=== PATIENT | male | born 1965 | race Caucasian/White ===

== ENCOUNTER → 2020-11-09 08:12 | Outpatient (BNVA) | payer MEDICARE, MEDICAID, SELFPAY | PROVIDERS: Visit Provider Orthopaedic Surgery | DX: M75.101 Unspecified rotator cuff tear or rupture of right shoulder, not specified as traumatic (principal) | CPT/HCPCS: 99212 ==

== ENCOUNTER 2020-12-02 06:03 | Day surgery (SDC) | payer MEDICARE, MEDICAID, SELFPAY ==
[2020-11-26 10:23] VITALS: BMI 28.8
[2020-12-02] VITALS (7 sets, daily range): BP systolic 99–130; BP diastolic 51–79; PULSE 67–76; RESP 16–18; TEMP 36.3–36.7; O2SAT 91–99
[2020-12-02 06:34] LABS: Glucose, Whole Blood 167 mg/dL (60-115)
--- NOTE | 2020-12-02 07:19 | HO.ANESPROP2 ---
HPI - Anesthesia Eval Consult details Narrative: 55 M for rotator cuff repair. Uneventful anesthesia for left shoulder previously PMFSH Past Medical History Medical History Asthma Back pain Depressive disorder Diabetes mellitus High cholesterol Hyperlipidemia Hypertension Lab test negative for COVID-19 virus Family History Family History Father No problems noted. Mother No problems noted. Surgical History Surgical History H/O colonoscopy History of cochlear implant History of repair of left rotator cuff (~04/10/18) Hx of sinus surgery Social History Social History Smoking Status: Former smoker Smoking Quit Date: 2014 Use of substances other than those prescribed or required for medical reasons: No Advance Directives Information Provided: No Recently lost weight without trying: No Current occupational status: employed Current occupation: right handed Meds Allergies Allergy/AdvReac Type Severity Reaction Status Date / Time No Known Allergies Allergy Verified 11/26/20 10:28 Home Medications Medication Instructions Recorded Confirmed Type albuterol sulfate 90 mcg/actuation 90 mcg INHALATION Q4-6H PRN 11/09/20 11/26/20 History aerosol inhaler aspirin 81 mg tablet,delayed 81 mg PO DAILY 11/09/20 11/26/20 History release atorvastatin 20 mg tablet 20 mg PO DAILY 11/09/20 11/26/20 History blood sugar diagnostic #10 ea 11/09/20 History empagliflozin 10 mg tablet 10 mg PO DAILY 11/09/20 11/26/20 History lancets 28 gauge #100 ea 11/09/20 History lisinopril 2.5 mg tablet 2.5 mg PO DAILY 11/09/20 11/26/20 History omeprazole 20 mg capsule,delayed 20 mg PO DAILY PRN 11/09/20 11/26/20 History release pregabalin 50 mg capsule 50 mg PO BID 11/09/20 11/26/20 History fluticasone propion-salmeterol 2 inh INHALATION BID 11/26/20 11/26/20 History glipizide 20 mg PO DAILY 11/26/20 11/26/20 History metoprolol tartrate 1 tab PO BID 11/26/20 11/26/20 History empagliflozin [Jardiance] 1 tab PO DAILY 12/02/20 12/02/20 History Exam Exam Date and Time: December 02, 2020718 Height,Weight and Vital Signs: Height 5 ft 6 in Weight 81.193 kg Last Vital Signs Temp 98.0 F 12/02/20 06:29 Pulse 67 12/02/20 06:29 Resp 16 12/02/20 06:29 BP 130/79 12/02/20 06:29 Pulse Ox 94 12/02/20 06:29 Pertinent Lab Results Pertinent Lab Results: Laboratory Tests 12/02/20 06:28 POC Glucose 167 H Airway Mallampati Class: II TM Dist: >3cm Neck ROM: Full Loose/Missing/Broken Teeth: No Heart: RRR Lungs: NL Assessment and Plan Assessment Anesthesia Assessment: Anesthesia Plan Discussed and Chart Reviewed Final Anesthetic Review NPO: Yes ASA Class: III Final Preanesthetic Review: No Changes in Pt Med Stat, Meds/Allgs Chart Reviewed, Consent Obtained/Reviewed and Anes Risks/Benef Reviewed Patient Risk: Intermediate Procedure Risk: Intermediate Anesthetic Plan Anesthetic Plan: GA and Regional Block Disposition: Standard PACU
--- NOTE | 2020-12-02 07:37 | MHC.SHP ---
Pre-Procedural Eval Section A The patient is an INPATIENT: No Changes since office visit: Yes Patient answered all questions; No Cold of Flu in the past 2 weeks, No New Medical Problems and No Changes in Medication The History & Physical has been completed within 30 days and I have reviewed it.: Yes Section B Chief Complaint: rotator cuff repair Allergies: Allergies Allergy/AdvReac Type Severity Reaction Status Date / Time No Known Allergies Allergy Verified 11/26/20 10:28 Plan I have reviewed the history and physical and performed a pertinent physical examination on my patient. No changes have occurred unless specified.
--- NOTE | 2020-12-02 07:43 | PC.NURSE ---
CEFAZOLIN PULLED FOR ANESTHESIA AT 0720
--- NOTE | 2020-12-02 09:20 | P.BOP_ITS ---
Brief Operative Note Date of Service: 12/02/20 Pre-op diagnosis: right rtc tear Post-op diagnosis: same Procedure: right rtc repair Implants: ahn and nephew helacoil 4.75 x2; 5.0 x 2 Surgeon: Harley Lora MD Anesthesia: GETA and regional Instructional Resource Teacher: Valeria Lowery Estimated blood loss (mL): 0 Tourniquet time (min): 0 IV fluids (mL): 900 Urine output (mL): 0 Pathology: none sent Condition: stable Disposition: PACU
--- NOTE | 2020-12-02 10:07 | OP_ITS ---
SURGEON: Harley Lora MD INDICATIONS: This is a 55-year-old gentleman with a full-thickness rotator cuff tear, consented to undergo rotator cuff repair. PREOPERATIVE DIAGNOSIS: Right rotator cuff tear. POSTOPERATIVE DIAGNOSIS: Right rotator cuff tear. PROCEDURE PERFORMED: Right rotator cuff repair. ESTIMATED BLOOD LOSS: Zero. COMPLICATIONS: None known. ANESTHESIA: General and regional. ASSISTANTS: Sebastián Cottrell. SPECIMENS: FLUIDS: 900. IMPLANTS: Morrissey and Nephew HEALICOIL 4.75 x 2 and knotless lateral row 5.0 x2. PROCEDURE IN DETAIL: The patient was brought to the operating room, placed in the beach chair position. All bony prominences were well padded and he was prepped and draped in standard sterile fashion. Time-out was called to identify proper site, proper procedure, proper surgeon. IV antibiotics per weight was administered. I began by making a posterolateral stab incision with 15 blade. Blunt trocar was placed into the glenohumeral joint and an anterior portal was established. There was no biceps tendon in the joint. Subscap was intact with the partial-thickness superior humeral insertional tear that was not made of repair. Cartilage surfaces were clean. Gutter was clean. Labrum was debrided circumferentially and there was an undersurface full-thickness rotator cuff tear. I then entered the subacromial space and established a lateral portal. I debrided the bursa and identified a crescentic full-thickness tear of the supraspinatus. Two medial row Morrissey and Nephew HEALICOIL 4.75 mm anchors were placed and a Scorpion was used to pass the FiberTape through the cuff. This was then brought down to a lateral row of 5.0 knotless anchors and I initially cross the sutures, but then uncross them as the compression of the cuff was better. Prior to this, I debrided the footprint down to bleeding bone. I was very happy with the repair at this point and then performed a 5 mm subacromial decompression. All instrumentation was then removed. Portals were closed with nylon. The patient was placed in sterile dressing, extubated, and brought to recovery room in stable condition. There were no known complications. MD [place]/SINGHL / [id number]
--- NOTE | 2020-12-02 10:58 | HO.POSTANES ---
Post Anesthesia Evaluation Post Anesthesia Evaluation Vital Signs: Vital Signs Temp Pulse Resp BP Pulse Ox 12/02/20 10:25 97.3 F 70 18 103/59 L 94 12/02/20 10:10 71 17 100/58 L 91 L 12/02/20 09:54 75 18 99/57 L 92 12/02/20 09:50 72 18 105/59 L 98 12/02/20 09:45 76 18 112/51 L 99 12/02/20 09:40 97.3 F 75 16 115/62 99 12/02/20 06:29 98.0 F 67 16 130/79 94 Anesthesia: Nerve Block and General Endotracheal-GETA Mental Status: Awake Pain Control: Satisfactory Nausea/Vomiting: None Hydration: Adequate Anesthesia-Related Issues: No Anes. Related Issues
== END 2020-12-02 11:02 | disposition home or self-care (01) ==
PROVIDERS: PCP Physician Assistant Medical; Visit Provider Orthopaedic Surgery
PROC: (CPT 29827; principal; 2020-12-02 07:30)
DX: M75.121 Complete rotator cuff tear or rupture of right shoulder, not specified as traumatic (principal); J45.909 Unspecified asthma, uncomplicated; E11.9 Type 2 diabetes mellitus without complications; I10 Essential (primary) hypertension; Z79.82 Long term (current) use of aspirin; Z79.84 Long term (current) use of oral hypoglycemic drugs; Z79.899 Other long term (current) drug therapy
CPT/HCPCS: 29827; 29826; 82947; C1713; J0171; J0690; J2250; J2370; J2405; J3010

== ENCOUNTER → 2020-12-17 10:45 | Outpatient (BNVA) | payer MEDICARE, MEDICAID, SELFPAY | PROVIDERS: PCP Physician Assistant Medical; Visit Provider Physician Assistant | DX: Z98.890 Other specified postprocedural states (principal) | CPT/HCPCS: 99212 ==

== ENCOUNTER → 2021-01-14 10:38 | Outpatient (BNVA) | payer MEDICARE, MEDICAID, SELFPAY | PROVIDERS: Visit Provider Orthopaedic Surgery | DX: Z98.890 Other specified postprocedural states (principal) | CPT/HCPCS: 99212 ==

== ENCOUNTER → 2021-03-01 10:50 | Outpatient (BNVA) | payer MEDICARE, MEDICAID, SELFPAY | PROVIDERS: Visit Provider Orthopaedic Surgery | DX: Z98.890 Other specified postprocedural states (principal) | CPT/HCPCS: 99212 ==

== ENCOUNTER 2021-03-09 11:00 | Outpatient (RCR) | payer MEDICARE, MEDICAID, SELFPAY ==
--- NOTE | 2021-01-05 14:07 | MHC.PT.EP ---
[facility] [place] Office [place] Office [place] Office [address] Judith West [address] [phone] F: [phone] F: [phone] F: [phone] F: [phone] Physical Therapy Plan of Care Date of Evaluation: 01/05/21 Date of Surgery: 12/02/20 Diagnosis: S/P RIGHT RC REPAIR Assessment: Pt IS S/P RC REPAIR 12/02/20. UPON EVAL Pt DEMONSTRATES IMPAIRMENTS OF DECREASED ROM, DECREASED STRENGTH, ALTERED POSTURE AND POSITIONING AND INCREASED PAIN. FUNCTIONAL LIMITATIONS INCLUDE DECREASED ABILITY TO PERFORM ADLs AND HOMEMAKING TASKS, INABILITY TO PERFORM LIFTING, REACHING, BENDING, PUSHING AND PULLING, DISRUPTED SLEEP AND DECREASED PARTICIPATION IN FITNESS AND RECREATIONAL ACTIVITIES. [ End ] Frequency and Duration: The patient will be seen 2X WEEK FOR 12 WEEKS Short Term Goals: INITIATE HEP AND EDUC IN SELF MANAGEMENT OF SYMPTOMS IN 2 WEEKS Long-Term Goals: FULL, PAINFREE SHOULDER ROM IN 12 WEEKS FULL UPPER EXTREMITY STRENGTH, EQUAL SNOW IN [address] OBJECT AT LEAST 5# ONTO SHOULDER HEIGHT SHELF WITHOUT INCREASING PAIN GREATER THAN 2/10 IN 12 WEEKS INDEPENDENT WITH ALL ADLs AND NO INCREASE IN PAIN IN 12 WEEKS Treatment Plan: Modalities to reduce pain, spasms and effusion. Manual therapy to restore motion and function. Therapeutic exercise to improve strength and flexibility. Neuromuscular re-education for posture and balance. Therapeutic activities to return to functional activities of daily living. Electronically signed by: LUCIA SCHNEIDER PT, DPT Please sign and return to therapist. Thank you for your referral.
--- NOTE | 2021-01-12 11:49 | MHC.PT.PR ---
[facility] [place] Office [place] Office [place] Office [address] [place] West [address] [facility] [phone] F: [phone] F: [phone] F: [phone] F: [phone] Physical Therapy Progress Note Diagnosis: S/P RIGHT RC REPAIR Date of Surgery: 12/02/20 Date of Evaluation: 01/01/21 Treatments to Date: 4 Cancellations to Date: 0 No Shows to Date: 0 Subjective: Performing HEP 2x day at home, no questions nor difficulties. Mild tightness in anterior shoulder. Improving sleep. Pain Score and Location: 3 RIGHT ANTERIOR SHOULDER Objective Measures: Pain free PROM Flex=90, ER=20 per protocol, AAROM to 120 in scapular plane without substitution (with tactile cuing) Assessment: Alec is progressing well as evidenced by increasing AAROM within protocol parameters, increasing strength of forearm and wrist, improving ability to perform correct scapular retraction and GH positioning. He will benefit from continued PT 2 x week for 4 weeks to progress per protocol and begin strengthening as appropriate. To Dr. Lora for F/U 01/14/21. PT Plan: Continue with PT Frequency and Duration: The patient will be seen 2x week for 4 weeks Treatment Plan: Therapeutic Exercise Dynamic Therapeutic Activities Neuromuscular Re-ed Manual Therapies Joint Mobilization Taping Home Exercise Program Patient Education Hot or Cold Pack Reviewed/ Agreed with Student Documentation: Therapist: Thank you once again for your referral.
--- NOTE | 2021-04-01 09:50 | MHC.PT.DC ---
[facility] [place] Office [place] Office [place] Office [address] Judith West [address] [phone] F: [phone] F: [phone] F: [phone] F: [phone] Physical Therapy Discharge Report Diagnosis: S/P RIGHT RC REPAIR Date of Surgery: 12/02/20 Date of Evaluation: 01/01/21 Date of Discharge: Treatments to Date: 14 Cancellations to Date: 0 No Shows to Date: 1 Discharge Status: Achieved Goals Improved Function Independent with HEP Discharge Summary: At last attended visit pt had progressed well and demonstrated full ROM and strength WFLs. He was independent with HEP and self management of any residual discomfort. He did not attend final scheduled visits for personal reasons, formal re-assess not performed. Electronically signed by: Bernadette Ball PT, DPT Please sign and return to therapist. Thank you for your referral.
== END 2021-04-01 09:50 | disposition other institution (70) ==
LOC: HO.PT 11:00
PROVIDERS: Visit Provider Physician Assistant
DX: Z98.890 Other specified postprocedural states (principal)
CPT/HCPCS: 97110; 97140; 97161; 97530; 97535

== ENCOUNTER → 2021-04-12 10:21 | Outpatient (BNVA) | payer MEDICARE, MEDICAID, SELFPAY | PROVIDERS: Visit Provider Orthopaedic Surgery | DX: Z98.890 Other specified postprocedural states (principal) | CPT/HCPCS: 99212 ==

== ENCOUNTER → 2022-03-18 11:40 | Outpatient (BNVA) | payer MEDICARE, MEDICAID, SELFPAY | PROVIDERS: Visit Provider Orthopaedic Surgery | DX: M54.12 Radiculopathy, cervical region (principal); M17.0 Bilateral primary osteoarthritis of knee; Z98.890 Other specified postprocedural states | CPT/HCPCS: 99212 ==

== ENCOUNTER → 2022-04-01 10:55 | Outpatient (BNVA) | payer MEDICARE, MEDICAID, SELFPAY | PROVIDERS: Visit Provider Orthopaedic Surgery | DX: M17.0 Bilateral primary osteoarthritis of knee (principal); Z98.890 Other specified postprocedural states | CPT/HCPCS: 99212 ==

== ENCOUNTER 2022-04-11 13:00 | Outpatient (RCR) | payer MEDICARE, MEDICAID, SELFPAY ==
--- NOTE | 2022-03-31 15:50 | MHC.PT.EP ---
[facility] [place] Office [place] Office [place] Office [address] [phone] F: [phone] F: [phone] F: [phone] F: [phone] Physical Therapy Plan of Care Date of Evaluation: Date of Surgery: Diagnosis: Cervicalgia and ho RTC surgery Assessment: This is a 56 yo male presenting to skilled PT with a script for cervicalgia and ho RTC surgery. In the past past 4.5 years he has had 2 surgeries on his L shoulder (RTC both times and has failed per patient), R shoulder RTC repair and cochlear implant on the L. He reports the L shoulder is worse but both hurt. Pain starts at the neck, ranges into the upper traps and scaps. Pain is described as stretching, needle poking and pinching. Pain is constant and every day. He [place] [facility] [place] them [place]). He has been to PT multiple times for his shoulders without much improvement. Assessment reveals pain that ranges up to a 10/10. He demos decreased ROM, decreased strength, impaired posture, impaired joint mobility as well as gross functional decline with all ADLs and IADLs. He has had PT of this same description on multiple occasions without relief making him only a fair candidate for skilled PT 2x/wk for 4 wks. Frequency and Duration: The patient will be seen 2x/wk for 4wks Short Term Goals: I in HEP Demo proper cervical alignment and posture with ther-ex, no PT cuing Hose Finisher Goals: Improve pain to no more than 7/10 at the worst Improve NDI by 10 points and SPADI by 10 pts Improve shoulder ROM by at least 25% Demo at least 4-/5 shoulder strength B Treatment Plan: Modalities to reduce pain, spasms and effusion. Manual therapy to restore motion and function. Therapeutic exercise to improve strength and flexibility. Neuromuscular re-education for posture and balance. Therapeutic activities to return to functional activities of daily living. Electronically signed by: Marilu Alberts, PT Please sign and return to therapist. Thank you for your referral.
--- NOTE | 2022-05-03 07:56 | MHC.PT.DC ---
[facility] [place] Office [place] Office [place] Office [address] Judith West [address] [phone] F: [phone] F: [phone] F: [phone] F: [phone] Physical Therapy Discharge Report Diagnosis: Cervicalgia and ho RTC surgery Date of Surgery: Date of Evaluation: 03/31/22 Date of Discharge: 05/03/22 Treatments to Date: 3 Cancellations to Date: 0 No Shows to Date: 0 Discharge Status: Visit Non-compliance Discharge Summary: Patient was DC'd from therapy due to lack of compliance with appointments and facility policy. Electronically signed by: Marilu Alberts PT Please sign and return to therapist. Thank you for your referral.
== END 2022-05-03 07:56 | disposition home or self-care (01) ==
LOC: HO.PTCHIC 13:00
PROVIDERS: Visit Provider Orthopaedic Surgery
DX: M54.12 Radiculopathy, cervical region (principal); Z98.890 Other specified postprocedural states
CPT/HCPCS: 97110; 97162; 97163